=== PATIENT | female | born 2000 | race Two or more races ===

== ENCOUNTER 2023-12-30 11:59 | Outpatient (CLI) | payer OTHER ==
[~2023-12-30 11:59] MED LIST: VITATRUE COMBO1 EACH PO
== END 2023-12-30 12:00 | disposition home or self-care (01) ==
LOC: PRENATAL 11:59
PROVIDERS: ATTEND Obstetrics & Gynecology Maternal & Fetal Medicine
DX: O35.9XX0 Maternal care for (suspected) fetal abnormality and damage, unspecified, not applicable or unspecified (principal); O35.3XX0 Maternal care for (suspected) damage to fetus from viral disease in mother, not applicable or unspecified; O44.02 Complete placenta previa NOS or without hemorrhage, second trimester; O36.0920 Maternal care for other rhesus isoimmunization, second trimester, not applicable or unspecified; Z3A.20 20 weeks gestation of pregnancy

== ENCOUNTER 2024-02-26 09:27 | Outpatient (CLI) | payer OTHER | END 2024-02-26 09:29 | disposition home or self-care (01) | LOC: PRENATAL 09:27 | PROVIDERS: ATTEND Obstetrics & Gynecology Maternal & Fetal Medicine | DX: O26.849 Uterine size-date discrepancy, unspecified trimester (principal); O36.1999 Maternal care for other isoimmunization, unspecified trimester, other fetus; Z3A.28 28 weeks gestation of pregnancy ==

== ENCOUNTER 2024-03-28 12:04 | Inpatient (IN) | payer OTHER ==
[~2024-03-28] VITALS: Ht 160 cm; Wt 83.5 kg
[2024-03-28 11:47] VITALS: BP 120/77
[2024-03-28] MEDS ORDERED: TYLENOL325 MG PO (12:24)
[2024-03-28] MEDS ORDERED: RINGERS SOLUTION,LACTATED 1,000 ML IV SCH (12:30)
[2024-03-28] MEDS ORDERED: AMPICILLIN SODIUM 2,000 MG VIAL IV ONE (12:30)
[2024-03-28] MEDS ORDERED: BETAMETHASONE ACETATE,SOD PHOS 30 MG/5 ML ML IM NR (12:40)
[2024-03-28 12:53] LABS: HEMATOCRIT 37.1 % (36.0-45.00); HEMOGLOBIN 12.5 g/dL (12.0-15.00); MEAN CELL VOLUME 91.5 fL (80.00-100.00); MEAN CORPUSCULAR HEMOGLOBIN 30.9 pg (27.00-32.0); MEAN CORPUSCULAR HGB CONC 33.7 g/dl (32.0-36.0); PLATELET COUNT 216 K/uL (150-450); RED BLOOD COUNT 4.05 M/uL (4.00-6.00); RED CELL DISTRIBUTION WIDTH 14.3 % (11.5-14.5)
[2024-03-28 12:58] LABS: URINE APPEARANCE Clear; URINE BILIRRUBIN Negative (NEGATIVE); URINE BLOOD Negative; URINE COLOR Yellow; URINE GLUCOSE Negative (NEGATIVE); URINE KETONE Negative (NEGATIVE); URINE LEUKOCYTE Negative; URINE NITRATE Negative; URINE PROTEIN Negative (NEGATIVE); URINE UROBILINOGEN 0.2 E.U./dl
[2024-03-28 13:01] LABS: URINE BACTERIA 566.9 uL (0.0-1933); URINE EPITHELIAL CELLS 9.5 uL (0.0-38.8); URINE RBC 2.2 uL (0.0-20.8); URINE WBC 12.5 uL (0.0-23.2)
[2024-03-28 13:06] LABS: URINE CAST 0.15 uL (0.0-1.40)
[2024-03-28 13:31] LABS: INR 0.95; PARTIAL THROMBOPLASTIN TIME 25.9 SECONDS (22.0-34.0); PROTHROMBIN TIME 10.4 SECONDS (9.0-11.5)
[2024-03-28 13:37] LABS: ALBUMIN 2.8 gm/dL (3.4-5.0); BILIRUBIN TOTAL 0.74 mg/dL (0.3-1.2); CALCIUM 9.4 mg/dL (8.5-10.1); CREATININE SERUM 0.31 mg/dL (0.55-1.02); GFR 263.16; GLOBULINA 3.5 G/DL (2.4-3.5); POTASSIUM 4.06 mEq/L (3.5-5.1); TOTAL PROTEIN 6.3 gm/dL (6.4-8.2)
[2024-03-28 15:06] VITALS: BP 117/71
[2024-03-28] MEDS ORDERED: NIFEDIPINE 30 MG TAB.SA.OSM PO SCH (16:12)
[2024-03-28] MEDS ORDERED: AMPICILLIN SODIUM 1,000 MG VIAL IV SCH (18:00)
[2024-03-28 23:05] VITALS: BP 112/60
[2024-03-29 04:05] VITALS: BP 112/67
[2024-03-29 07:10] VITALS: BP 120/72; O2SAT 99
[2024-03-29] MEDS ORDERED: BETAMETHASONE ACETATE,SOD PHOS 30 MG/5 ML ML IM SCH (12:40)
[2024-03-29 13:39] VITALS: BP 109/69
[2024-03-29 16:00] VITALS: BP 132/70
[2024-03-29 20:00] VITALS: BP 108/66
[2024-03-30] VITALS: BP 121/69
[2024-03-30 09:11] VITALS: BP 104/55
== END 2024-03-30 12:12 | disposition home or self-care (01) | DRG 833 ==
LOC: LDR 12:04 → OB/GYN 03-29 10:18
PROVIDERS: ADMIT Obstetrics & Gynecology; ATTEND Obstetrics & Gynecology
PROC: 4A1HXCZ Monitoring of Products of Conception, Cardiac Rate, External Approach (ICD-10-PCS; principal; 2024-03-28)
DX: O46.8X3 Other antepartum hemorrhage, third trimester (principal); O36.8130 Decreased fetal movements, third trimester, not applicable or unspecified; Z3A.33 33 weeks gestation of pregnancy; Z20.822 Contact with and (suspected) exposure to COVID-19

== ENCOUNTER 2024-04-27 17:02 | Inpatient (IN) | payer OTHER ==
[~2024-04-27] VITALS: Ht 160 cm; Wt 83.9 kg
[~2024-04-27 17:02] MED LIST changes: +TYLENOL325 MG PO
[2024-04-27 17:10] VITALS: BP 106/73
[2024-04-27 18:29] LABS: HEMATOCRIT 40.2 % (36.0-45.00); HEMOGLOBIN 13.8 g/dL (12.0-15.00); MEAN CELL VOLUME 89.8 fL (80.00-100.00); MEAN CORPUSCULAR HEMOGLOBIN 30.9 pg (27.00-32.0); MEAN CORPUSCULAR HGB CONC 34.4 g/dl (32.0-36.0); PLATELET COUNT 214 K/uL (150-450); RED BLOOD COUNT 4.47 M/uL (4.00-6.00); RED CELL DISTRIBUTION WIDTH 14.3 % (11.5-14.5)
[2024-04-27 18:29] LABS: URINE APPEARANCE Clear; URINE BILIRRUBIN Negative (NEGATIVE); URINE BLOOD Negative; URINE COLOR Yellow; URINE GLUCOSE Negative (NEGATIVE); URINE KETONE Negative (NEGATIVE); URINE LEUKOCYTE Negative; URINE NITRATE Negative; URINE PROTEIN Negative (NEGATIVE); URINE UROBILINOGEN 0.2 E.U./dl
[2024-04-27 18:30] LABS: URINE EPITHELIAL CELLS 28.1 uL (0.0-38.8); URINE RBC 32.3 uL (0.0-20.8); URINE WBC 11.5 uL (0.0-23.2)
[2024-04-27 20:06] VITALS: BP 98/64
[2024-04-27] MEDS ORDERED: RINGERS SOLUTION,LACTATED 1,000 ML IV SCH (23:15)
[2024-04-28] VITALS (7 sets, daily range): BP systolic 100–131; BP diastolic 63–85; O2SAT 98–100
[2024-04-28] MEDS ORDERED: MISOPROSTOL 25 MCG TABLET VAG ONE (19:30)
[2024-04-29 04:05] VITALS: BP 139/72
[2024-04-29] MEDS ORDERED: MISOPROSTOL 25 MCG/4 ML GEL.W.APPL VAG ONE (07:00)
[2024-04-29 07:47] VITALS: BP 127/70
[2024-04-29] MEDS ORDERED: OXYTOCIN 500 ML IV SCH (11:45)
[2024-04-29 11:46] VITALS: BP 138/79
[2024-04-29 15:59] VITALS: BP 144/86
[2024-04-29] MEDS ORDERED: OXYTOCIN 10 UNITS/ML VIAL IV ONE (17:30)
[2024-04-29] MEDS ORDERED: ERYTHROMYCIN BASE OPHT 1GM EACH TUBE OP ONE (17:30)
[2024-04-29] MEDS ORDERED: CEFOXITIN SODIUM 2,000 MG VIAL IV SCH (17:45)
[2024-04-29] MEDS ORDERED: ONDANSETRON HCL 2 MG/ML VIAL IV PRN (19:00)
[2024-04-29] MEDS ORDERED: MORPHINE SULFATE 4 MG/ML CARTRIDGE IV PRN (19:00)
[2024-04-29] MEDS ORDERED: MORPHINE SULFATE 4 MG/ML VIAL IV ONE ×2 (19:55→21:55)
[2024-04-29] MEDS ORDERED: CEFOXITIN SODIUM 2,000 MG VIAL IV ONE (20:00)
[2024-04-29] MEDS ORDERED: SIMETHICONE 125 MG CAPSULE PO SCH (21:00)
[2024-04-30 01:52] LABS: HEMATOCRIT 37.8 % (36.0-45.00); HEMOGLOBIN 12.5 g/dL (12.0-15.00); MEAN CELL VOLUME 91.4 fL (80.00-100.00); MEAN CORPUSCULAR HEMOGLOBIN 30.3 pg (27.00-32.0); MEAN CORPUSCULAR HGB CONC 33.2 g/dl (32.0-36.0); PLATELET COUNT 187 K/uL (150-450); RED BLOOD COUNT 4.13 M/uL (4.00-6.00); RED CELL DISTRIBUTION WIDTH 14.5 % (11.5-14.5)
[2024-04-30 02:33] VITALS: BP 122/77
[2024-04-30 08:58] VITALS: BP 140/90
[2024-04-30] MEDS ORDERED: NAPROXEN 500 MG TABLET PO SCH (09:00)
[2024-04-30] MEDS ORDERED: ACETAMINOPHEN WITH CODEINE 1 UDTAB TABLET PO PRN (09:00)
[2024-04-30 16:00] VITALS: BP 138/77
[2024-05-01 00:43] VITALS: BP 103/67
[2024-05-01 07:33] VITALS: BP 111/59
[2024-05-01 16:00] VITALS: BP 138/84
[2024-05-02 00:14] VITALS: BP 120/82
[2024-05-02 08:00] VITALS: BP 138/88
[2024-05-02] MEDS ORDERED: Tylenol #3 PO (10:39)
[2024-05-02] MEDS ORDERED: RHOGAM ULTR1500 UNIT IM (10:39)
[2024-05-02] MEDS ORDERED: NAPR500T14 PO (10:39)
[2024-05-02] MEDS ORDERED: FF) RHO(D) IMMUNE GLOBULIN (POM) IM ONE (12:30)
== END 2024-05-02 13:41 | disposition home or self-care (01) | DRG 787 ==
LOC: OBS/DEL 17:02 → LDR 04-28 18:48 → O/R 04-29 18:48 → OB/GYN 04-29 20:29
PROVIDERS: Obstetrics & Gynecology; ADMIT Obstetrics & Gynecology; ATTEND Obstetrics & Gynecology
PROC: 4A1HXCZ Monitoring of Products of Conception, Cardiac Rate, External Approach (ICD-10-PCS; 2024-04-28)
PROC: BY4FZZZ Ultrasonography of Third Trimester, Single Fetus (ICD-10-PCS; 2024-04-28)
PROC: 3E0P7VZ Introduction of Hormone into Female Reproductive, Via Natural or Artificial Opening (ICD-10-PCS; 2024-04-28)
PROC: 3E033VJ Introduction of Other Hormone into Peripheral Vein, Percutaneous Approach (ICD-10-PCS; 2024-04-29)
PROC: 10D00Z1 Extraction of Products of Conception, Low, Open Approach (ICD-10-PCS; principal; 2024-04-29 17:00)
DX: O82 Encounter for cesarean delivery without indication (principal); O41.03X0 Oligohydramnios, third trimester, not applicable or unspecified; O36.8130 Decreased fetal movements, third trimester, not applicable or unspecified; O26.843 Uterine size-date discrepancy, third trimester; Z3A.37 37 weeks gestation of pregnancy; Z37.0 Single live birth; Z20.822 Contact with and (suspected) exposure to COVID-19